=== PATIENT | female | born 1985 | race Caucasian/White ===

== ENCOUNTER 2020-01-21 11:32 | Outpatient (CLI) | payer BC ==
--- NOTE | 2020-01-21 13:07 | Ultrasound Report ---
Reason: POSSIBLE DVT IN LEFT LEG AFTER DELIVERY Procedure Date: 01/21/2020 Accession Number: [id number] / [id number] Procedure: US - Duplex Ext Veins Left CPT Code: Final Report FULL RESULT: EXAM: LEFT LOWER EXTREMITY VENOUS ULTRASOUND EXAM DATE: 01/21/2020 12:27 PM. CLINICAL HISTORY: POSSIBLE DVT IN LEFT LEG AFTER DELIVERY. Swelling and redness in left leg (upper/medial calf). COMPARISON: None. TECHNIQUE: Real-time sonographic vascular imaging was performed by the licensed sales producer through the lower extremity utilizing both color-flow and Doppler spectral analysis. Multiple outbound telemarketing representative static images were saved for review. FINDINGS: Common Femoral Vein (CFV): Normal. CFV-GSV Junction: Normal. Profunda Femoral Vein (PFV): Normal. Femoral Vein (FV) Prox: Normal. Femoral Vein (FV) Mid: Normal. Femoral Vein (FV) Dist: Somewhat slow flow, but remains patent. Popliteal Vein: Somewhat slow flow, but remains patent. Posterior Tibial Veins: Normal. Peroneal Veins: Normal. Other: In the region of patient's swelling/redness at the upper/medial calf, superficial tubular appearing hypoechoic dilated structures are present with internal echoes and surrounding soft tissue hyperechogenicity/hyperemia. Findings are suggestive of superficial thrombophlebitis. IMPRESSION: 1. No evidence for deep venous thrombosis in the left lower extremity. 2. Findings suggestive of superficial thrombophlebitis in the area of patient's swelling/redness at the upper/medial calf. [facility]
== END 2020-01-21 11:33 | disposition home or self-care (01) ==
LOC: DI 11:32
PROVIDERS: ATTEND Midwife
DX: R22.42 Localized swelling, mass and lump, left lower limb (principal)